=== PATIENT | female | born 1950 | race American Indian/Alaskan Native ===

== ENCOUNTER 2019-05-25 17:56 | Emergency (ER) | payer MEDICARE ==
--- NOTE | 2019-05-25 18:58 | Emergency Department Report ---
Blank Doc - Documentation Documentation: 68-year-old female that presents with right ankle pain with radiation to upper back. This initial assessment/diagnostic orders/clinical plan/treatment(s) is/are subject to change based on patient's health status, clinical progression and re- assessment by fellow clinical providers in the ED. Further treatment and workup at subsequent clinical providers discretion. Patient/guardians urged not to elope from the ED as their condition may be serious if not clinically assessed and managed. Initial orders include: 1- Patient sent to [facility] for further evaluation and treatment 2- xrays
--- NOTE | 2019-05-25 20:13 | XRay Report ---
LUMBAR SPINE 3 VIEWS INDICATION / CLINICAL INFORMATION: low back pain. COMPARISON: None available. FINDINGS: Moderate diffuse degenerative change in the lumbar spine with narrowing of several of the disc spaces . There is very mild anterolisthesis of L4 on L5. Signer Name: Neil Angel MD FACYasmeen Signed: 05/25/2019 8:09 PM Workstation Name: [id number]
--- NOTE | 2019-05-25 20:13 | XRay Report ---
RIGHT ANKLE 3 VIEWS INDICATION / CLINICAL INFORMATION: ankle pain. COMPARISON: None available. FINDINGS: Moderate degenerative change in the ankle joint. No other significant skeletal abnormality. Signer Name: Neil Angel MD FACYasmeen Signed: 05/25/2019 8:08 PM Workstation Name: [id number]
[2019-05-25 21:55] VITALS: BP 164/89
--- NOTE | 2019-05-25 22:48 | Emergency Department Report ---
ED General Adult HPI - General Chief complaint: Extremity Problem,Nontraumatic Stated complaint: RT ANKLE/NECK PAIN Time Seen by Provider: 05/25/19 18:57 Source: patient Mode of arrival: Ambulatory Limitations: No Limitations - History of Present Illness Initial comments: Mrs. Solitario is a very pleasant 68-year-old female with history of arthritis, diabetes mellitus, dyslipidemia, neuropathy, carpal tunnel syndrome, sciatica who presents with upper lower back pain and right ankle pain for several weeks. Pain has been exacerbated with increased physical activity at work. 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 She is required to bend and lift objectss. She feels as if she has been overworked. She works a part-time drop 4-5 days per week. Formerly worked in the healthcare industry. She also worked in the [employer] industry. She has diffuse pain in her neck back and ankles. No previous diagnosis of rheumatoid arthritis. Her PCP Dr. Yan in [place] has referred her to both ankle and retail support specialist as well as orthopedic surgeon. She was prescribed gabapentin by her PCP. Gabapentin has not provided any relief. -: Gradual, week(s) (several) Location: neck, back, left, right, upper extremity, lower extremity Severity scale (0 -10): 1 Quality: aching Consistency: constant Improves with: none Worsens with: movement Associated Symptoms: denies other symptoms Treatments Prior to Arrival: none - Related Data Previous Rx's Medication Instructions Recorded Last Taken Type HYDROcodone/APAP 5-325 [Sagle 1 each PO Q6HR PRN #10 tablet 05/25/19 Unknown Rx 5/325] Allergies Allergy/AdvReac Type Severity Reaction Status Date / Time No Known Allergies Allergy Unverified 05/25/19 19:01 ED Review of Systems ROS: Stated complaint: RT ANKLE/NECK PAIN Other details as noted in HPI Comment: All other systems reviewed and negative Constitutional: denies: fever, malaise Respiratory: denies: cough Cardiovascular: denies: chest pain Gastrointestinal: denies: abdominal pain Musculoskeletal: back pain, joint swelling, arthralgia Neurological: paresthesias (right thigh tingling) ED Past Medical Hx - Past Medical History Previous Medical History?: Yes Hx Diabetes: Yes Hx Arthritis: Yes Additional medical history: Hyperlipidemia,neuropathy, bilateral carpel tunnel - Surgical History Past Surgical History?: Yes Additional Surgical History: Hysterectomy 2006 - Social History Smoking Status: Never Smoker Substance Use Type: None - Medications Home Medications: Home Medications Medication Instructions Recorded Confirmed Last Taken Type HYDROcodone/APAP 5-325 [Sagle 1 each PO Q6HR PRN #10 tablet 05/25/19 Unknown Rx 5/325] ED Physical Exam - General Limitations: No Limitations General appearance: alert, in no apparent distress, other (active vibrant looks younger than stated age) - Head Head exam: Present: atraumatic, normocephalic - Eye Eye exam: Present: normal appearance - ENT ENT exam: Present: mucous membranes moist - Neck Neck exam: Present: normal inspection, full ROM - Respiratory Respiratory exam: Present: normal lung sounds bilaterally. Absent: respiratory distress, wheezes, rales, rhonchi - Cardiovascular Cardiovascular Exam: Present: regular rate, normal rhythm, normal heart sounds. Absent: systolic murmur, diastolic murmur, rubs, gallop - GI/Abdominal GI/Abdominal exam: Present: soft, normal bowel sounds. Absent: distended, tenderness, guarding, rebound - Extremities Exam Extremities exam: Present: normal inspection, full ROM, normal capillary refill. Absent: tenderness, pedal edema, joint swelling, calf tenderness - Back Exam Back exam: Present: normal inspection, full ROM. Absent: tenderness, CVA tenderness (R), CVA tenderness (L), muscle spasm, paraspinal tenderness, vertebral tenderness, rash noted - Neurological Exam Neurological exam: Present: alert, oriented X3 - Psychiatric Psychiatric exam: Present: normal affect, normal mood - Skin Skin exam: Present: warm, dry, intact, normal color. Absent: rash ED Course Vital Signs 05/25/19 05/25/19 18:59 21:53 Temperature 98.2 F 97.5 F L Pulse Rate 79 72 Respiratory 18 18 Rate Blood Pressure 141/70 Blood Pressure 164/89 [Right] O2 Sat by Pulse 99 99 Oximetry ED Medical Decision Making - Radiology Data Radiology results: report reviewed According to radiology impression of the lumbar spine 3 view study: There is moderate diffuse degenerative changes lumbar spine with narrowing of several disc spaces with very mild anterolisthesis of L4 on 5 Right ankle 3 views: Moderate degenerative changes in the ankle joint according to radiologist's impression - Medical Decision Making Mrs. Solitario presents with diffuse pain in the back and joints. Differential diagnosis includes rheumatoid arthritis, osteoarthritis with degenerative disc disease. No red flags to indicate infection or malignancy such as fever, weight loss. No history of trauma. I have prescribed 10 tablets of Sagle. I also strongly recommended keeping her appointments with her two referred specialists. She has appointments with both ankle-retail support specialist and orthopedic surgeon this week. Critical care attestation.: If time is entered above; I have spent that time in minutes in the direct care of this critically ill patient, excluding procedure time. ED Disposition Clinical Impression: Osteoarthritis of ankle, Lumbar degenerative disc disease Disposition: TO HOME OR SELFCARE Is pt being admited?: No Does the pt Need Aspirin: No Condition: Stable Instructions: Osteoarthritis (ED), Degenerative Disc Disease (ED) Prescriptions: HYDROcodone/APAP 5-325 [Sagle 5/325] 1 each PO Q6HR PRN #10 tablet PRN Reason: Pain Referrals: PRIMARY CARE, [Referring] - 7-10 days Forms: Work/School Release Form(ED)
== END 2019-05-25 22:57 | disposition home or self-care (01) ==
LOC: ED 17:56
DX: M51.36 Other intervertebral disc degeneration, lumbar region (principal); M19.071 Primary osteoarthritis, right ankle and foot; M19.90 Unspecified osteoarthritis, unspecified site; E11.40 Type 2 diabetes mellitus with diabetic neuropathy, unspecified; Z90.710 Acquired absence of both cervix and uterus
CPT/HCPCS: 72100